=== PATIENT | female | born 1985 | race American Indian/Alaskan Native ===

== ENCOUNTER 2017-10-18 20:09 | Emergency (ER) | payer SELFPAY ==
[2017-10-18 20:29] VITALS: BP 138/98
[2017-10-18] MEDS ORDERED: ASPIRIN PO ONE (20:29)
[2017-10-18 20:49] LABS: Basophils % (Auto) 0.4 % (0.0-1.8); Eosinophils # (Auto) 0.8 K/mm3 (0.0-0.4); Eosinophils % (Auto) 7.9 % (0.0-4.3); Hematocrit 37.4 % (30.3-42.9); Hemoglobin 12.7 gm/dl (10.1-14.3); Lymphocytes # (Auto) 2.6 K/mm3 (1.2-5.4); Lymphocytes % (Auto) 25.7 % (13.4-35.0); Mean Corpuscular HGB Conc 34 % (30-34); Mean Corpuscular Hemoglobin 27 pg (28-32); Mean Corpuscular Volume 79 fl (79-97); Monocytes # (Auto) 0.5 K/mm3 (0.0-0.8); Monocytes % (Auto) 5.1 % (0.0-7.3); Platelet Count 191 K/mm3 (140-440); Red Blood Count 4.73 M/mm3 (3.65-5.03); Red Cell Distribution Width 13.6 % (13.2-15.2)
[2017-10-18 21:08] LABS: BUN/Creatinine Ratio 13; Blood Urea Nitrogen 9 mg/dL (7-17); Hemolysis Index 0
== END 2017-10-18 23:45 | disposition left against medical advice (07) ==
LOC: ED 20:09
DX: R07.89 Other chest pain (principal); R07.0 Pain in throat; Z53.21 Procedure and treatment not carried out due to patient leaving prior to being seen by health care provider
CPT/HCPCS: 36415; 80048; 84484; 85025; 93005; 93010

== ENCOUNTER 2017-10-19 08:31 | Emergency (ER) | payer SELFPAY ==
[2017-10-19 08:44] VITALS: BP 138/94
[2017-10-19] MEDS ORDERED: DELTASONE PO ONE (09:38)
[2017-10-19] MEDS ORDERED: PROVENTIL IH ONE (09:38)
[2017-10-19] MEDS ORDERED: ROBITUSSIN PO ONE (09:39)
--- NOTE | 2017-10-19 10:17 | Emergency Department Report ---
Minor Respiratory - HPI Chief Complaint: Adult Asthma Stated Complaint: SOB Time Seen by Provider: 10/19/17 09:25 Duration: 2 Days Severity: moderate Minor Respiratory: Yes Able to Tolerate Fluids, Yes Cough, Yes Shortness of Breath, No Rhinorrhea, No Sore Throat, No Ear Pain, No Sick Contacts, No Hemoptysis, No Chest Pain, No Fever Other History: 32-year-old female 10 weeks gestation followed by PATIENT APPOINTMENT COORDINATOR at [facility] presents to ED complaining of the shortness of breath with coughing productive mucus started yesterday. Patient denies any history of bronchitis and states she is not sure she has asthma. Patient states she follows up with her OB regarding the has no complaints today. She denies fevers/chills/nausea/abdominal pain / chest pain ED Review of Systems ROS: Stated complaint: SOB Other details as noted in HPI Constitutional: denies: chills, fever Eyes: denies: eye pain, eye discharge, vision change ENT: congestion. denies: ear pain, throat pain Respiratory: cough, shortness of breath. denies: wheezing Cardiovascular: denies: chest pain, palpitations Endocrine: no symptoms reported Gastrointestinal: denies: abdominal pain, nausea, diarrhea Genitourinary: denies: urgency, dysuria, discharge Musculoskeletal: denies: back pain, joint swelling, arthralgia Skin: denies: rash, lesions Neurological: denies: headache, weakness, paresthesias Psychiatric: denies: anxiety, depression Hematological/Lymphatic: denies: easy bleeding, easy bruising ED Past Medical Hx - Past Medical History Previous Medical History?: Yes Hx Hypertension: Yes (h/o HTN only during ) Hx Asthma: Yes Additional medical history: Vaginal delivery x 5 - Surgical History Past Surgical History?: No - Social History Smoking Status: Never Smoker - Medications Home Medications: Home Medications Medication Instructions Recorded Confirmed Last Taken Type medroxyPROGESTERone ACETATE 10 mg PO QDAY #10 tablet 08/13/14 Unknown Rx [Provera] ALBUTEROL Inhaler [ProAir HFA 2 puff IH QID PRN #1 inhalation 10/19/17 Unknown Rx Inhaler] Azithromycin [Zithromax] 250 mg PO DAILY #6 tablet 10/19/17 Unknown Rx guaiFENesin [Robitussin] 200 mg PO TID #100 ml 04/18/18 Unknown Rx Minor Respiratory Exam - Exam General: Vital signs noted. No distress. Alert and acting appropriately. HEENT: Yes Moist Mucous Membranes, No Pharyngeal Erythema, No Pharyngeal Exudates, No Rhinorrhea, No Conjuctival Injection, No Frontal Tenderness, No Maxillary Tenderness Ear: Neither TM Bulge, Neither TM Erythema, Neither EAC Pain, Neither EAC Discharge Neck: Yes Supple, No Adenopathy Lungs: Yes Good Air Exchange, No Wheezes, No Ronchi, No Stridor, No Cough, No Labored Respirations, No Retractions, No Use of Accessory Muscles, No Other Abnormal Lung Sounds Heart: Yes Regular, No Murmur Abdomen: Yes Normal Bowel Sounds, No Tenderness, No Peritoneal Signs Skin: No Rash, No Edema Neurologic: Alert and oriented, no deficits. Musculoskeletal: Unremarkable. ED Course Vital Signs 10/19/17 08:38 Temperature 98.5 F Pulse Rate 89 Respiratory 20 Rate Blood Pressure 138/94 O2 Sat by Pulse 95 Oximetry ED Medical Decision Making - Medical Decision Making 32-year-old female at 10 weeks gestation presents with upper respiratory infection ED course: Albuterol, Robitussin given ED I discussed the patient was sent home on prophylaxis antibiotics as well as an inhaler and cough suppressants. Discussed Tylenol products are safe in Discussed to follow up with PATIENT APPOINTMENT COORDINATOR. Patient had no complaints she states she has a follow-up with her OB/ [facility]. Vital signs are normalized patient is in no acute or respiratory distress. Discussed the patient have worsening symptoms to return to ED immediately. Critical care attestation.: If time is entered above; I have spent that time in minutes in the direct care of this critically ill patient, excluding procedure time. ED Disposition Clinical Impression: Bronchitis URI (upper respiratory infection) Qualifiers: URI type: unspecified URI Qualified Code(s): J06.9 - Acute upper respiratory infection, unspecified Disposition: - TO HOME OR SELFCARE Is pt being admited?: No Does the pt Need Aspirin: No Condition: Stable Instructions: Upper Respiratory Infection (ED), Chronic Bronchitis (ED), Cold Symptoms (ED) Additional Instructions: Make sure to follow up with her PATIENT APPOINTMENT COORDINATOR as discussed. Take all your medications as you've been prescribed. If you have any worsening symptoms or develop new symptoms please return to ED immediately. Prescriptions: ALBUTEROL Inhaler [ProAir HFA Inhaler] 2 puff IH QID PRN #1 inhalation PRN Reason: Shortness Of Breath Azithromycin [Zithromax] 250 mg PO DAILY #6 tablet guaiFENesin [Robitussin] 200 mg PO TID #100 ml Referrals: PRIMARY CARE, [Primary Care Provider] - 3-5 Days Forms: Work/School Release Form(ED) Time of Disposition: 10:21
== END 2017-10-19 10:30 | disposition home or self-care (01) ==
LOC: ED 08:31
DX: O99.511 Diseases of the respiratory system complicating pregnancy, first trimester (principal); O24.911 Unspecified diabetes mellitus in pregnancy, first trimester; O13.1 Gestational [pregnancy-induced] hypertension without significant proteinuria, first trimester; J45.909 Unspecified asthma, uncomplicated; Z3A.10 10 weeks gestation of pregnancy
CPT/HCPCS: 99283; J7512